=== PATIENT | male | born 1930 | race Caucasian/White ===

== ENCOUNTER 2017-01-31 11:51 | Emergency (ER) | payer MEDICARE, OTHER ==
[2017-01-31] MEDS ORDERED: Sodium Chloride 0.9% 2.5 ML Syringe FLUSH PRN (12:17)
[2017-01-31] MEDS ORDERED: Sodium Chloride 0.9% 10 ML Syringe FLUSH PRN (12:17)
--- NOTE | 2017-01-31 12:18 | EDM.PDOC ---
ED HPI GENERAL MEDICAL PROBLEM - General Chief Complaint: Abdominal Pain Stated Complaint: ABDOMINAL PAIN Time Seen by Provider: 01/31/17 12:15 Source of Information: Reports: Patient History Limitations: Reports: No Limitations - History of Present Illness INITIAL COMMENTS - FREE TEXT/NARRATIVE: HISTORY AND PHYSICAL: []86-year-old male presenting with right-sided abdominal pain History of Present Illness: []Patient relates having pain previously years ago and had a blockage/Dr. Malin had given him some pills and the blockage moved Pain today comes and goes as been present for the last 4 days. Worsens when he takes a deep breath. Review of Systems: As per history of present illness and below otherwise all systems reviewed and negative. Past medical history: As per history of present illness and as reviewed below otherwise noncontributory. Surgical history: As per history of present illness and as reviewed below otherwise noncontributory. Social history: No reported history of drug or alcohol abuse. Family history: As per history of present illness and as reviewed below otherwise noncontributory. Physical exam: 86-year-old male who is alert and oriented answering questions appropriately in full sentences without any shortness breath. HEENT: Atraumatic, normocehpalic, pupils reactive, negative for conjunctival pallor or scleral icterus, mucous membranes moist, throat clear, neck supple, nontender, trachea midline. Lungs: Clear to auscultation, breath sounds equal bilaterally, chest non tender. Heart: S1S2, regular, negative for clicks, rubs, or JVD. Abdomen: Soft, nondistended, nontender. Negative for masses or hepatossplenmegaly. Negative for costovertebral tenderness. Pelvis: Stable nontender. Genitourinary: Deferred. Rectal: Deferred Extremities: Atraumatic, negative for cords or calf pain. Neurovascular unremarkable. Neuro: Awake, alert, oriented. Cranial nerves II through XII unremarkable. Cerebellum unremarkable. Motor and sensory unremarkable throughout. Exam nonfocal. Have discussed with the patient and his the results of his x-rays and lab work worrisome findings were noted no obstruction Diagnostics: [CBC CMP chest x-ray, flat and upright] Therapeutics: [] Impression: [Abdominal gas pain] Plan: [Discharged to home Start taking Metamucil daily] Follow-up with Dr. swan your PCP this week Definitive disposition and diagnosis as appropriate pending reevaluation and review of above. Onset: Gradual Duration: Day(s): (3-4) Right Lower Abdomen Pain Score (Numeric/FACES): 7 - Related Data Allergies Allergy/AdvReac Type Severity Reaction Status Date / Time No Known Allergies Allergy Verified 01/31/17 12:13 Home Meds: Home Meds Furosemide [Lasix] 20 mg PO DAILY 01/31/17 [History] Losartan [Cozaar] 100 mg PO DAILY 01/31/17 [History] ED ROS GENERAL - Review of Systems Review Of Systems: ROS reveals no pertinent complaints other than HPI. ED EXAM, GI/ABD - Physical Exam Exam: See Below (See dictation) Course - Vital Signs Last Recorded V/S: Last Vital Signs Temp 36.2 C 01/31/17 12:11 Pulse 68 01/31/17 12:11 Resp 20 01/31/17 12:11 BP 136/74 01/31/17 12:11 Pulse Ox 97 01/31/17 12:11 - Orders/Labs/Meds Orders: Active Orders 24 hr Category Date Time Status EKG Documentation Completion [RC] STAT Care 01/31/17 12:45 Active Abdomen 2V AP Flat Upright [CR] Stat Exams 01/31/17 12:17 Taken Chest 2V [CR] Stat Exams 01/31/17 12:17 Taken Sodium Chloride 0.9% [Saline Flush] Med 01/31/17 12:17 Active 10 ml FLUSH ASDIRECTED PRN Sodium Chloride 0.9% [Saline Flush] Med 01/31/17 12:17 Active 2.5 ml FLUSH ASDIRECTED PRN Saline Lock Insert [OM.PC] Stat Oth 01/31/17 12:17 Ordered Medication Orders Sodium Chloride (Saline Flush) 10 ml FLUSH ASDIRECTED PRN PRN Reason: Keep Vein Open Sodium Chloride (Saline Flush) 2.5 ml FLUSH ASDIRECTED PRN PRN Reason: Keep Vein Open Labs: Laboratory Tests 01/31/17 01/31/17 01/31/17 Range/Units 12:30 12:30 12:55 WBC 7.26 (4.0-11.0) K/uL RBC 4.14 L (4.50-5.90) M/uL Hgb 13.2 (13.0-17.0) g/dL Hct 39.4 (38.0-50.0) % MCV 95.2 (80.0-98.0) fL MCH 31.9 (27.0-32.0) pg MCHC 33.5 (31.0-37.0) g/dL RDW Std Deviation 47.4 (28.0-62.0) fl RDW Coeff of [place] 14 (11.0-15.0) % Plt Count 149 L (150-400) K/uL MPV 9.70 (7.40-12.00) fL Neut % (Auto) 68.4 (48.0-80.0) % Lymph % (Auto) 20.5 (16.0-40.0) % [place] % (Auto) 10.1 (0.0-15.0) % Eos % (Auto) 0.6 (0.0-7.0) % Baso % (Auto) 0.4 (0.0-1.5) % Neut # (Auto) 5.0 (1.4-5.7) K/uL Lymph # (Auto) 1.5 (0.6-2.4) K/uL [place] # (Auto) 0.7 (0.0-0.8) K/uL Eos # (Auto) 0.0 (0.0-0.7) K/uL Baso # (Auto) 0.0 (0.0-0.1) K/uL Nucleated RBC % 0.0 /100WBC Nucleated RBCs # 0 K/uL Sodium 137 (136-146) mmol/L Potassium 5.1 (3.5-5.1) mmol/L Chloride 105 (98-110) mmol/L Carbon Dioxide 23 (21-31) mmol/L BUN 33 H (6.0-23.0) mg/dL Creatinine 1.9 H (0.6-1.5) mg/dL Est Cr Clr Drug Dosing 26.50 mL/min Estimated GFR (MDRD) 33.7 ml/min Glucose 92 (60-110) mg/dL Calcium 9.4 (8.8-10.8) mg/dL Total Bilirubin 1.0 (0.1-1.5) mg/dL AST 11 (5-40) IU/L ALT 11 (8-54) IU/L Alkaline Phosphatase 107 (40-150) Total Protein 7.4 (6.0-8.0) g/dL Albumin 4.2 (3.4-4.8) g/dL Globulin 3.2 (2.0-3.5) g/dL Albumin/Globulin Ratio 1.3 (1.3-2.8) Urine Color YELLOW Urine Appearance CLEAR Urine pH 6.0 (5.0-8.0) Ur Specific [place] 1.010 (1.001-1.035) Urine Protein NEGATIVE (NEGATIVE) mg/dL Urine Glucose (UA) NEGATIVE (NEGATIVE) mg/dL Urine Ketones NEGATIVE (NEGATIVE) mg/dL Urine Occult Blood NEGATIVE (NEGATIVE) Urine Nitrite NEGATIVE (NEGATIVE) Urine Bilirubin NEGATIVE (NEGATIVE) Urine Urobilinogen 0.2 (<2.0) EU/dL Ur Leukocyte Esterase NEGATIVE (NEGATIVE) Meds: Medications Generic Name Dose Route Start Last Admin Trade Name Freq PRN Reason Stop Dose Admin Sodium Chloride 10 ml 01/31/17 12:17 Saline Flush FLUSH ASDIRECTED PRN Keep Vein Open Sodium Chloride 2.5 ml 01/31/17 12:17 Saline Flush FLUSH ASDIRECTED PRN Keep Vein Open Departure - Departure Time of Disposition: 14:46 Disposition: Home, Self-Care 01 Condition: Good Clinical Impression: Abdominal gas pain - Discharge Information Forms: ED Department Discharge Additional Instructions: The following information is given to patients seen in the emergency department who are being discharged to home. This information is to outline your options for follow-up care. We provide all patients seen in our emergency department with a follow-up referral. The need for follow-up, as well as the timing and circumstances, are variable depending upon the specifics of your emergency department visit. If you don't have a primary care physician on staff, we will provide you with a referral. We always advise you to contact your personal physician following an emergency department visit to inform them of the circumstance of the visit and for follow-up with them and/or the need for any referrals to a consulting specialist. The emergency department will also refer you to a specialist when appropriate. This referral assures that you have the opportunity for followup care with a specialist. All of these measure are taken in an effort to provide you with optimal care, which includes your followup. Under all circumstances we always encourage you to contact your private physician who remains a resource for coordinating your care. When calling for followup care, please make the office aware that this follow-up is from your recent emergency room visit. If for any reason you are refused follow-up, please contact the [facility] emergency department at and asked to speak to the emergency department charge nurse. No worrisome findings were noted on your examination today either x-rays or labs Start Metamucil daily See your primary care provider Dr. López this week for follow-up - My Orders Last 24 Hours: My Active Orders 01/31/17 12:17 Abdomen 2V AP Flat Upright [CR] Stat Chest 2V [CR] Stat Sodium Chloride 0.9% [Saline Flush] 10 ml FLUSH ASDIRECTED PRN Sodium Chloride 0.9% [Saline Flush] 2.5 ml FLUSH ASDIRECTED PRN Saline Lock Insert [OM.PC] Stat 01/31/17 12:45 EKG Documentation Completion [RC] STAT - Assessment/Plan Last 24 Hours: My Active Orders 01/31/17 12:17 Abdomen 2V AP Flat Upright [CR] Stat Chest 2V [CR] Stat Sodium Chloride 0.9% [Saline Flush] 10 ml FLUSH ASDIRECTED PRN Sodium Chloride 0.9% [Saline Flush] 2.5 ml FLUSH ASDIRECTED PRN Saline Lock Insert [OM.PC] Stat 01/31/17 12:45 EKG Documentation Completion [RC] STAT
--- NOTE | 2017-02-01 08:04 | CR ---
EXAM DATE: 01/31/17 PATIENT'S AGE: 86 Patient: VIRI DANIELS Facility: [place], [place] Site . Site : 1930 Study: XRay Abdomen [id number] 2:01:20 PM Ordering Physician: Doctor Hernandez Final Report: INDICATION: Pain. Technique: Flat and upright abdomen. Findings: No free intraperitoneal air. Nonobstructive bowel gas pattern. No calcifications overlying the kidneys, pancreas, or hepatobiliary system. No mass or organomegaly. Degenerative changes of the spine. Extensive surgical clips in the soft tissues of the pelvis. Impression: No bowel perforation or obstruction. Dictated by Pal Lara MD @ Jan 31 2017 2:15PM (Electronic Signature) Report Signed by Proxy. ROYA
--- NOTE | 2017-02-01 08:05 | CR ---
EXAM DATE: 01/31/17 PATIENT'S AGE: 86 Patient: VIRI DANIELS Facility: [place], [place] Site . Site : 1930 Study: XRay Chest [id number] 2:01:45 PM Ordering Physician: Doctor Hernandez Final Report: INDICATION: Pain. Technique: Two-view chest. Findings: Heart and mediastinum are normal in size and configuration. Pulmonary vessels are normal. linear scarring in the lingula. Lungs free of acute focal consolidation. No pleural fluid. No acute bony abnormality. Healed left rib fractures and osteophytes in the thoracic spine. Impression: No acute chest disease. Dictated by Pal Lara MD @ Jan 31 2017 2:26PM (Electronic Signature) Report Signed by Proxy. [facility]ISCH HOSPITALRamona
== END 2017-01-31 14:55 | disposition home or self-care (01) ==
LOC: MW.ED 11:51
DX: R14.1 Gas pain (principal); Z79.899 Other long term (current) drug therapy
CPT/HCPCS: 71020; 71020-26; 74020; 74020-26; 80053; 81003; 85025; 93005; 99284; 99284-25